=== PATIENT | female | born 1990 | race Caucasian/White ===

== ENCOUNTER 2018-04-11 11:40 | Emergency (ER) | payer OTHER ==
[~2018-04-11] VITALS: Ht 160 cm; Wt 104.1 kg
[2018-04-11 12:00] VITALS: BP 101/58
--- NOTE | 2018-04-11 12:14 | PHYS DOC ---
Past History Past Medical History: No Pertinent History Past Surgical History: Tonsillectomy Alcohol Use: None Drug Use: None Adult General Chief Complaint Chief Complaint: COUGH HPI HPI 27-year-old female presents with 3 day history of cough and congestion. She has had a worsening cough for the last 3 days. She has had some production with whitish mucus. She thought she might of had one blood tinged sputum but is unsure. She has not had a fever or chills. She has nasal congestion and sinus pressure in her maxillary area. The patient is most concerned because she is 16 weeks and her neighbor was admitted to the hospital with pneumonia and sepsis. Her has been uncomplicated. Review of Systems Review of Systems Constitutional: Denies fever or chills [] Eyes: Denies change in visual acuity, redness, or eye pain [] HENT: Nasal congestion and sinus pain[] Respiratory: Cough without shortness of breath [] Cardiovascular: No additional information not addressed in HPI [] GI: Denies abdominal pain, nausea, vomiting, bloody stools or diarrhea [] : Denies dysuria or hematuria [] Musculoskeletal: Denies back pain or joint pain [] Integument: Denies rash or skin lesions [] Neurologic: Denies headache, focal weakness or sensory changes [] Endocrine: Denies polyuria or polydipsia [] All other systems were reviewed and found to be within normal limits, except as documented in this note. Allergies Allergies Allergies Coded Allergies Type Severity Reaction Last Updated Verified No Known Drug Allergies 04/11/18 No Physical Exam Physical Exam Constitutional: Well developed, well nourished, no acute distress, non-toxic appearance. [] HENT: Normocephalic, atraumatic, bilateral external ears normal, oropharynx moist, no oral exudates, nose thick congestion. [] Eyes: PERRLA, EOMI, conjunctiva normal, no discharge. [] Neck: Normal range of motion, no tenderness, supple, no stridor. [] Cardiovascular:Heart rate regular rhythm, no murmur [] Lungs & Thorax: Bilateral breath sounds clear to auscultation [] Abdomen: gravid uterus, Bowel sounds normal, soft, no tenderness, no masses, no pulsatile masses. [] Skin: Warm, dry, no erythema, no rash. [] Back: No tenderness, no CVA tenderness. [] Extremities: No tenderness, no cyanosis, no clubbing, ROM intact, no edema. [] Neurologic: Alert and oriented X 3, normal motor function, normal sensory function, no focal deficits noted. [] Psychologic: Affect normal, judgement normal, mood normal. [] Current Patient Data Vital Signs Vital Signs Date Time Temp Pulse Resp B/P (MAP) Pulse Ox O2 Delivery O2 Flow Rate FiO2 04/11/18 11:40 99.0 90 20 97 Room Air EKG EKG [] Radiology/Procedures Radiology/Procedures [] Course & Med Decision Making Course & Med Decision Making Pertinent Labs and Imaging studies reviewed. (See chart for details) The patient's lungs are completely clear to auscultation. She does not have a fever. Her vital signs are normal. Given her , normal vitals and exam, I do not feel a chest x-ray is necessary. This is likely to be a viral illness that'll be self-limiting. If the patient develops a fever above 101F she should return to emergency room for evaluation. She will check with her CARDIOLOGY NURSE for approved [id number] medications for cold symptoms. She is stable for discharge at this time. [] Dragon Disclaimer Dragon Disclaimer This electronic medical record was generated, in whole or in part, using a voice recognition dictation system. ROSMEARIE WILD DO Apr 11, 2018 12:13
== END 2018-04-11 12:19 | disposition home or self-care (01) ==
LOC: ER 11:40
DX: O99.512 Diseases of the respiratory system complicating pregnancy, second trimester (principal); R05 Cough; R09.81 Nasal congestion; Z3A.16 16 weeks gestation of pregnancy
CPT/HCPCS: 99281